=== PATIENT | female | born 1955 | race Two or more races ===

== ENCOUNTER 2016-06-20 00:02 | Inpatient (IN) | payer MEDICAID ==
[~2016-06-20] VITALS: Ht 157.5 cm; Wt 70.3 kg
[2016-06-20] MEDS ORDERED: ALBUTEROL FS 2.5 MG/0.5 ML VIAL.NEB NEB ONE (00:30)
[2016-06-20] MEDS ORDERED: IV NS 0.9% 500 ML BAG IV ONE (00:30)
[2016-06-20] MEDS ORDERED: ONDANSETRON HCL/PF 4 MG/2 ML VIAL IVP ONE (00:30)
[2016-06-20] MEDS ORDERED: MORPHINE SULFATE INJ 2 MG/ML DISP.SYRIN IV ONE (00:30)
[2016-06-20] MEDS ORDERED: ALBUTEROL FS 2.5 MG/0.5 ML VIAL.NEB ONE (00:33)
[2016-06-20] MEDS ORDERED: IV SET PRIMARY 1 EA INFUS.SET MC ONE ×2 (00:34→04:03)
[2016-06-20] MEDS ORDERED: MORPHINE SULFATE INJ 4 MG/ML DISP.SYRIN ONE (00:34)
[2016-06-20] MEDS ORDERED: ONDANSETRON HCL/PF 4 MG/2 ML VIAL ONE (00:34)
[2016-06-20] MEDS ORDERED: IV NS 0.9% 500 ML IV ONE (00:34)
[2016-06-20 01:02] LABS: BASOPHILS % (AUTO) 0.4 % (0.0-2.0); DIFF TOTAL % 100 %; EOSINOPHILS # (AUTO) 0.2 /CMM (0.0-0.7); EOSINOPHILS % (AUTO) 3.6 % (0.0-6.0); HEMATOCRIT 39 % (33-45); HEMOGLOBIN 13.1 g/dL (11.5-14.8); LYMPHOCYTES # (AUTO) 1.3 /CMM (0.8-4.8); LYMPHOCYTES % (AUTO) 19.9 % (20.0-44.0); MEAN CORPUSCULAR HEMOGLOBIN 29 PG (26.0-33.0); MEAN CORPUSCULAR HGB CONC 33 g/dl (31.0-36.0); MEAN CORPUSCULAR VOLUME 87 fL (82-100); MONOCYTES # (AUTO) 0.7 /CMM (0.1-1.30); MONOCYTES % (AUTO) 10.7 % (2.0-12.0); NEUTROPHILS # (AUTO) 4.2 /CMM (1.8-8.9); NEUTROPHILS % (AUTO) 65.4 % (43.0-81.0); PLATELET COUNT (AUTO) 228 /CMM (150-450); RED BLOOD CELL COUNT(AUTO) 4.54 MIL/uL (4.0-5.2); WHITE BLOOD COUNT (AUTO) 6.5 K/uL (4.3-11.0)
[2016-06-20 01:09] LABS: ANION GAP 13 (5-14); CALCIUM, SERUM 9.3 mg/dL (8.5-10.1); CARBON DIOXIDE 32 mmol/L (21-32); CHLORIDE 99 mmol/L (98-107); CREATININE 0.7 mg/dL (0.6-1.3); GFR 85 mL/min (>60); GLUCOSE 130 mg/dL (74-106); POTASSIUM 3.3 mmol/L (3.5-5.1); SODIUM SERUM 141 mmol/L (136-145); UREA NITROGEN, BLOOD 9 mg/dL (7-18)
[2016-06-20 01:14] LABS: ALANINE AMINOTRANSFERASE 35 U/L (12-78); ALBUMIN 3.2 g/dL (3.4-5.0); ASPARTATE AMINOTRANSFERASE 17 U/L (15-37); BILIRUBIN,DIRECT 0.1 mg/dL (0.0-0.2); BILIRUBIN,TOTAL 0.5 mg/dL (0.2-1.0); INDIRECT BILIRUBIN 0.4 mg/dL (0.0-1.1); TOTAL PROTEIN, SERUM 7.4 g/dL (6.4-8.2)
[2016-06-20 01:17] LABS: TROPONIN I < 0.017 ng/mL (0.00-0.056)
[2016-06-20] MEDS ORDERED: MORPHINE SULFATE INJ 2 MG/ML DISP.SYRIN ONE (02:53)
[2016-06-20 03:27] LABS: ADD UA MICROSCOPIC NO; KETONES,URINE NEGATIVE (NEGATIVE); LEUKOCYTE ESTERASE ,URINE NEGATIVE (NEGATIVE)
[2016-06-20] MEDS ORDERED: CEFTRIAXONE 1GM BAG (ER ONLY) 50 ML IV ONE ×2 (04:00→04:03)
[2016-06-20] MEDS ORDERED: VANCOMYCIN 1 GM in IV D5W 250 ML IV ONE (04:00)
[2016-06-20] MEDS ORDERED: IV SET PRIMARY PUMP SET 1 EA INFUS.SET MC ONE ×2 (04:03→10:09)
[2016-06-20] MEDS ORDERED: CEFTRIAXONE 1 G VIAL ONE (04:03)
[2016-06-20] MEDS ORDERED: IV NS 0.9% 250 ML IV ONE (04:03)
[2016-06-20] MEDS ORDERED: DEXAMETHASONE SOD PHOSPHATE 10 MG/ML VIAL ONE (04:28)
[2016-06-20] MEDS ORDERED: MAGNESIUM HYDROXIDE 30 ML UDC PO PRN (04:30)
[2016-06-20] MEDS ORDERED: ONDANSETRON HCL/PF 4 MG/2 ML VIAL IVP PRN (04:30)
[2016-06-20] MEDS ORDERED: MAG HYDROX/AL HYDROX/SIMETH 30 ML UDC PO PRN (04:30)
[2016-06-20] MEDS ORDERED: ZOLPIDEM TARTRATE 5 MG TABLET PO PRN (04:30)
[2016-06-20] MEDS ORDERED: Z GUARD REMEDY 2 OZ OINT TP PRN (04:30)
[2016-06-20] MEDS ORDERED: HYDROCODONE/APAP 5/325MG 1 EACH TABLET PO PRN (04:30)
[2016-06-20] MEDS ORDERED: METF500T4 PO (04:38)
[2016-06-20] MEDS ORDERED: FLUT1DIS5 IH (04:38)
[2016-06-20] MEDS ORDERED: DICL75TA5 PO (04:38)
[2016-06-20] MEDS ORDERED: LOSA50TA21 PO (04:38)
[2016-06-20] MEDS ORDERED: LEVO500T90 PO (04:38)
[2016-06-20] MEDS ORDERED: ASPI-605 PO (04:38)
[2016-06-20] MEDS ORDERED: TIOT18CA3 IH (04:38)
[2016-06-20] MEDS ORDERED: ATOR20TA PO (04:38)
[2016-06-20 04:45] VITALS: BP 150/83
[2016-06-20] MEDS ORDERED: DEXAMETHASONE SOD PHOSPHATE 4 MG/ML VIAL IM SCH (05:00)
[2016-06-20 08:00] VITALS: BP 104/63
[2016-06-20] MEDS ORDERED: AZITHROMYCIN 250 MG TABLET PO ONE (08:30)
[2016-06-20] MEDS ORDERED: TIOTROPIUM BROMIDE 6 CAP/BOX CAP.W.DEV IH SCH (09:00)
[2016-06-20] MEDS ORDERED: *INSULIN REGULAR(HUMULIN R)HUM 100 UNIT/ML VIAL SQ PRN (09:00)
[2016-06-20] MEDS ORDERED: METFORMIN 500 MG TABLET PO SCH (09:00)
[2016-06-20] MEDS ORDERED: LOSARTAN POTASSIUM 50 MG TABLET PO SCH (09:00)
[2016-06-20] MEDS ORDERED: INSULIN REGULAR, HUMAN 100 UNIT/ML 3 ML VIAL SQ PRN (09:00)
[2016-06-20] MEDS ORDERED: FLUTICASONE/SALMETEROL DISKUS IH SCH (09:00)
[2016-06-20] MEDS ORDERED: GUAIFENESIN/D-METHORPHAN HB 5 ML UDC PO PRN (09:00)
[2016-06-20] MEDS ORDERED: DEXTROSE 50%-WATER 50 ML DISP.SYRIN IV PRN (09:00)
[2016-06-20] MEDS ORDERED: POTASSIUM CHLORIDE 20 MEQ TAB.PRT.SR PO SCH (09:30)
[2016-06-20] MEDS: ASPIRIN EC 81 MG TABLET.DR PO SCH (09:54)
[2016-06-20] MEDS: IV NS 0.9% 1,000 ML IV PRN (10:12)
[2016-06-20] MEDS: FLUTICASONE/SALMETEROL DISKUS IH SCH ×2 (11:45→16:30)
[2016-06-20] MEDS ORDERED: BLOOD SUGAR DIAGNOSTIC 1 EACH STRIP IN SCH (12:00)
[2016-06-20] MEDS ORDERED: POTASSIUM CHLORIDE 20 MEQ TAB.PRT.SR PO ONE ×2 (12:00→12:30)
[2016-06-20] MEDS ORDERED: BLOOD SUGAR DIAGNOSTIC 1 EACH STRIP VI SCH (12:00)
[2016-06-20] MEDS: IPRATROPIUM NEB FS 0.5 MG/2.5 ML AMPUL.NEB NEB SCH ×2 (13:07→20:02)
[2016-06-20] MEDS: methylPREDNISolone SOD SUCC 40 MG/ML VIAL IV SCH ×2 (13:46→16:36)
[2016-06-20] MEDS ORDERED: LORA10TA7 PO (13:55)
[2016-06-20] MEDS ORDERED: MONT10TA22 PO (13:55)
[2016-06-20] MEDS ORDERED: CARV12.52 PO (13:59)
[2016-06-20] MEDS ORDERED: AMLO5TAB4 PO (14:01)
[2016-06-20] MEDS ORDERED: THEO400T PO (14:01)
[2016-06-20] MEDS ORDERED: LOSA100T15 PO (14:01)
[2016-06-20] MEDS ORDERED: CHOL100040 PO (14:08)
[2016-06-20] MEDS ORDERED: CLON0.1T PO (14:08)
[2016-06-20] MEDS: ACETAMINOPHEN 325 MG TABLET PO PRN (14:16)
[2016-06-20 16:00] VITALS: BP 138/83
[2016-06-20] MEDS: CARVEDILOL 12.5 MG TABLET PO SCH (16:30)
[2016-06-20 20:00] VITALS: BP 140/88
[2016-06-21 00:36] VITALS: BP 140/88
[2016-06-21] MEDS: IPRATROPIUM NEB FS 0.5 MG/2.5 ML AMPUL.NEB NEB SCH ×4 (01:07→20:12)
[2016-06-21] MEDS: CEFTRIAXONE 1 G in IV D5W 50 ML IV SCH (04:13)
[2016-06-21] MEDS: IV NS 0.9% 1,000 ML IV PRN (04:18)
[2016-06-21] MEDS: ALBUTEROL FS 2.5 MG/0.5 ML VIAL.NEB NEB PRN ×2 (06:28→13:07)
[2016-06-21 07:27] LABS: BASOPHILS % (AUTO) 0.1 % (0.0-2.0); DIFF TOTAL % 100 %; EOSINOPHILS % (AUTO) 0.1 % (0.0-6.0); HEMATOCRIT 37 % (33-45); HEMOGLOBIN 12.1 g/dL (11.5-14.8); LYMPHOCYTES # (AUTO) 1.3 /CMM (0.8-4.8); LYMPHOCYTES % (AUTO) 11.3 % (20.0-44.0); MEAN CORPUSCULAR HEMOGLOBIN 29 PG (26.0-33.0); MEAN CORPUSCULAR HGB CONC 33 g/dl (31.0-36.0); MEAN CORPUSCULAR VOLUME 88 fL (82-100); MONOCYTES # (AUTO) 0.7 /CMM (0.1-1.30); NEUTROPHILS # (AUTO) 9.2 /CMM (1.8-8.9); NEUTROPHILS % (AUTO) 82.5 % (43.0-81.0); PLATELET COUNT (AUTO) 236 /CMM (150-450); RED BLOOD CELL COUNT(AUTO) 4.16 MIL/uL (4.0-5.2); WHITE BLOOD COUNT (AUTO) 11.1 K/uL (4.3-11.0)
[2016-06-21 07:43] LABS: CALCIUM, SERUM 8.8 mg/dL (8.5-10.1); CREATININE 0.7 mg/dL (0.6-1.3); PHOSPHORUS 2.9 mg/dL (2.5-4.9); POTASSIUM 4.1 mmol/L (3.5-5.1)
[2016-06-21 08:00] VITALS: BP 139/75
[2016-06-21] MEDS: ASPIRIN EC 81 MG TABLET.DR PO SCH (10:16)
[2016-06-21] MEDS: CARVEDILOL 12.5 MG TABLET PO SCH ×2 (10:17→16:42)
[2016-06-21] MEDS: LORATADINE 10 MG TABLET PO SCH (10:17)
[2016-06-21] MEDS: methylPREDNISolone SOD SUCC 40 MG/ML VIAL IV SCH ×2 (10:18→16:52)
[2016-06-21] MEDS: LOSARTAN POTASSIUM 50 MG TABLET PO SCH (10:18)
[2016-06-21] MEDS: AMLODIPINE BESYLATE 5 MG TABLET PO SCH (10:19)
[2016-06-21] MEDS: MONTELUKAST SODIUM (10MG) 10 MG TABLET PO SCH (10:19)
[2016-06-21] MEDS: AZITHROMYCIN 250 MG TABLET PO SCH (10:20)
[2016-06-21] MEDS: THEOPHYLLINE TAB 24HR 400 MG TAB.SR. PO SCH (10:25)
[2016-06-21] MEDS: FLUTICASONE/SALMETEROL DISKUS IH SCH ×2 (11:03→16:44)
[2016-06-21] MEDS: ACETAMINOPHEN 325 MG TABLET PO PRN (13:44)
[2016-06-21 16:00] VITALS: BP 133/79
[2016-06-21] MEDS: LACTOBACILLUS RHAMNOSUS GG 1 EACH CAP.SPRINK PO SCH (16:42)
[2016-06-21 20:00] VITALS: BP 140/86
[2016-06-21] MEDS ORDERED: ATORVASTATIN 10 MG TABLET PO SCH (22:00)
[2016-06-22] MEDS ORDERED: SECONDARY IV SET 1 EA INFUS.SET MC ONE (00:14)
[2016-06-22] MEDS: IV NS 0.9% 1,000 ML IV PRN (00:26)
[2016-06-22] MEDS: IPRATROPIUM NEB FS 0.5 MG/2.5 ML AMPUL.NEB NEB SCH ×3 (01:30→12:40)
[2016-06-22] MEDS: CEFTRIAXONE 1 G in IV D5W 50 ML IV SCH (04:09)
[2016-06-22 08:00] VITALS: BP 157/98
[2016-06-22 09:02] LABS: BASOPHILS % (AUTO) 0.1 % (0.0-2.0); DIFF TOTAL % 100 %; EOSINOPHILS % (AUTO) 0.1 % (0.0-6.0); HEMATOCRIT 37 % (33-45); HEMOGLOBIN 12.1 g/dL (11.5-14.8); LYMPHOCYTES # (AUTO) 1.6 /CMM (0.8-4.8); LYMPHOCYTES % (AUTO) 17.2 % (20.0-44.0); MEAN CORPUSCULAR HEMOGLOBIN 29 PG (26.0-33.0); MEAN CORPUSCULAR HGB CONC 33 g/dl (31.0-36.0); MEAN CORPUSCULAR VOLUME 87 fL (82-100); MONOCYTES # (AUTO) 0.5 /CMM (0.1-1.30); MONOCYTES % (AUTO) 5.2 % (2.0-12.0); NEUTROPHILS # (AUTO) 7.2 /CMM (1.8-8.9); NEUTROPHILS % (AUTO) 77.4 % (43.0-81.0); PLATELET COUNT (AUTO) 237 /CMM (150-450); RED BLOOD CELL COUNT(AUTO) 4.22 MIL/uL (4.0-5.2); WHITE BLOOD COUNT (AUTO) 9.3 K/uL (4.3-11.0)
[2016-06-22] MEDS: THEOPHYLLINE TAB 24HR 400 MG TAB.SR. PO SCH (09:18)
[2016-06-22] MEDS: MONTELUKAST SODIUM (10MG) 10 MG TABLET PO SCH (09:19)
[2016-06-22] MEDS: FLUTICASONE/SALMETEROL DISKUS IH SCH (09:19)
[2016-06-22] MEDS: CARVEDILOL 12.5 MG TABLET PO SCH (09:20)
[2016-06-22] MEDS: AMLODIPINE BESYLATE 5 MG TABLET PO SCH (09:20)
[2016-06-22] MEDS: LACTOBACILLUS RHAMNOSUS GG 1 EACH CAP.SPRINK PO SCH (09:21)
[2016-06-22] MEDS: ASPIRIN EC 81 MG TABLET.DR PO SCH (09:21)
[2016-06-22] MEDS: AZITHROMYCIN 250 MG TABLET PO SCH (09:21)
[2016-06-22] MEDS: LORATADINE 10 MG TABLET PO SCH (09:21)
[2016-06-22] MEDS: methylPREDNISolone SOD SUCC 40 MG/ML VIAL IV SCH (09:22)
[2016-06-22] MEDS: LOSARTAN POTASSIUM 50 MG TABLET PO SCH (09:22)
[2016-06-22] MEDS ORDERED: AMLODIPINE BESYLATE 5 MG TABLET PO SCH (11:00)
[2016-06-22] MEDS: ACETAMINOPHEN 325 MG TABLET PO PRN (12:09)
[2016-06-22 12:16] VITALS: BP 160/78
[2016-06-22] MEDS ORDERED: AMLO5TAB4 PO (14:23)
[2016-06-22] MEDS ORDERED: LEVO500T15 PO (14:28)
[2016-06-22] MEDS ORDERED: PRED20TA PO (14:28)
[2016-06-22] MEDS ORDERED: GUAI600T PO (14:28)
[2016-06-25] MEDS ORDERED: ERGOCALCIFEROL (VITAMIN D 2) 50,000 UNIT CAPSULE PO SCH (09:00)
== END 2016-06-22 15:07 | disposition home or self-care (01) | DRG 139 ==
LOC: ER 00:04 → TELE 04:11 → MED 05:29
PROVIDERS: ADMIT Family Medicine; ATTEND Student in an Organized Health Care Education/Training Program
DX: J15.9 Unspecified bacterial pneumonia (principal); J45.901 Unspecified asthma with (acute) exacerbation; I10 Essential (primary) hypertension; E11.9 Type 2 diabetes mellitus without complications; J45.909 Unspecified asthma, uncomplicated; E87.6 Hypokalemia; K57.30 Diverticulosis of large intestine without perforation or abscess without bleeding
CPT/HCPCS: 36415; 71010-TC; 76705-TC; 80048-TC; 80061-TC; 80076-TC; 81000-TC; 82962-TC; 83605-TC; 83690-TC; 83735-TC; 84100-TC; 84484-TC; 85025-TC; 87040-TC; 87081-TC; A4606; J0696; J1100; J1815; J2270; J2405; J2920; J7030; J7040; J7050; J7060; Z7610